=== PATIENT | female | born 1935 | race Caucasian/White ===

== ENCOUNTER → 2017-02-22 | Outpatient (CLI) | payer MEDICARE, OTHER ==
[~2017-02-22] MED LIST: ACIDOPHILUS PROB1 MG PO; CALC-534 PO; CARB1DRO5 EACHEYE; CHOL10003 PO; CYCL1DRO EACHEYE; LEVO100T PO; LEVO88TA2 PO; LOSA25TA5 PO; MELA1TAB6 PO; METO-93 PO; OMEP40CA6 PO; WARF3TAB7 PO; [UNRECOGNIZED DRUG - MIXTURE] PO; cytomel PO; magnesium PO; potassium PO; vitamin b12 INJ
[2017-02-22 12:27] LABS: HEMATOCRIT 42.8 % (34.6-47.8); WHITE BLOOD COUNT 4.5 x10^3/uL (3.4-10)
[2017-02-22 12:36] LABS: BLOOD UREA NITROGEN 16 mg/dL (7-18)
[2017-02-22 12:40] LABS: ASPARTATE AMINO TRANSFERASE 25 U/L (15-37)
== END | disposition home or self-care (01) ==
LOC: STAR 11:17
PROVIDERS: ATTEND Orthopaedic Surgery
DX: Z01.818 Encounter for other preprocedural examination (principal); I48.91 Unspecified atrial fibrillation; G56.01 Carpal tunnel syndrome, right upper limb; M81.0 Age-related osteoporosis without current pathological fracture
CPT/HCPCS: 36415; 80053; 85025; 85610; 85730; 93005

== ENCOUNTER 2017-03-01 05:39 | Day surgery (SDC) | payer MEDICARE, OTHER ==
[~2017-03-01] VITALS: Ht 174 cm; Wt 73.0 kg
[2017-03-01] MEDS ORDERED: BUPIVACAINE/PF 0.5% ONE (06:09)
[2017-03-01] MEDS ORDERED: BACITRACIN 50,000 UNIT ONE (06:09)
[2017-03-01] MEDS ORDERED: LIDOCAINE/PF 1%, 30ML ONE (06:09)
[2017-03-01] MEDS ORDERED: LACTATED RINGERS 1,000 ML IV SCH (06:13)
[2017-03-01 06:44] VITALS: BP 140/66
[2017-03-01] MEDS ORDERED: hydrALAzine 20 MG/ML, 1ML IV PRN (07:00)
[2017-03-01] MEDS ORDERED: MEPERIDINE/PF 25MG/0.5ML IVPush PRN (07:00)
[2017-03-01] MEDS ORDERED: ACETAMINOPHEN 325 MG TABLET PO PRN (07:00)
[2017-03-01] MEDS ORDERED: FENTANYL PF 100 MCG/2ML IV PRN (07:00)
[2017-03-01] MEDS ORDERED: HYDROcodone/APAP 7.5-325MG/15ML UDC PO PRN (07:00)
[2017-03-01] MEDS ORDERED: LABETALOL 5MG/ML, 20ML IV PRN (07:00)
[2017-03-01] MEDS ORDERED: PROMETHAZINE 25 MG/ML, 1ML IV PRN (07:00)
[2017-03-01] MEDS ORDERED: ONDANSETRON 2MG/ML, 2ML IVPush PRN (07:00)
[2017-03-01] MEDS ORDERED: HYDROmorphone 1 MG/ML, 1ML IV PRN (07:00)
[2017-03-01] MEDS ORDERED: ONDANSETRON 2MG/ML, 2ML ONE (07:04)
[2017-03-01] MEDS ORDERED: PROPOFOL 10 MG/ML, 20ML ONE (07:04)
[2017-03-01] MEDS ORDERED: FENTANYL PF 100 MCG/2ML ONE (07:04)
[2017-03-01] MEDS ORDERED: MIDAZOLAM 1 MG/ML, 2ML ONE (07:04)
[2017-03-01] MEDS ORDERED: DEXAMETHASONE 4 MG/ML, 1ML ONE (07:04)
== END 2017-03-01 09:15 ==
LOC: OUT 05:39
PROVIDERS: ATTEND Orthopaedic Surgery
DX: G56.01 Carpal tunnel syndrome, right upper limb (principal); I10 Essential (primary) hypertension; K21.9 Gastro-esophageal reflux disease without esophagitis; E03.9 Hypothyroidism, unspecified; Z87.39 Personal history of other diseases of the musculoskeletal system and connective tissue; Z88.6 Allergy status to analgesic agent; Z88.1 Allergy status to other antibiotic agents; Z88.8 Allergy status to other drugs, medicaments and biological substances; Z91.09 Other allergy status, other than to drugs and biological substances
CPT/HCPCS: 29848; 36415; 85610; J1100; J2250; J2405; J2704; J3010; J3490; J7120

== ENCOUNTER → 2018-08-23 | Outpatient (CLI) | payer MEDICARE, OTHER ==
[~2018-08-23] MED LIST changes: +LOSA25TA25 PO; -LOSA25TA5 PO; +OMNIPAQUE 350 MG/ML, 100ML BOTTLE ONE; +WARF3TAB52 PO; -WARF3TAB7 PO
== END | disposition home or self-care (01) ==
LOC: CFH 12:34
PROVIDERS: ATTEND Family Medicine
DX: R51 Headache (principal)
CPT/HCPCS: 70496; Q9967

== ENCOUNTER → 2018-10-12 | Outpatient (CLI) | payer MEDICARE, OTHER ==
[~2018-10-12] MED LIST changes: +LIDOCAINE-MPF 1%, 5ML ONE; -OMNIPAQUE 350 MG/ML, 100ML BOTTLE ONE; +ROPivacaine/PF 0.2%, 10 ML ONE; +TRIAMCINOLONE ACETONIDE 40 MG/ML, 1ML ONE
== END | disposition home or self-care (01) ==
LOC: RAD 13:01
PROVIDERS: ATTEND Nurse Practitioner
DX: M19.071 Primary osteoarthritis, right ankle and foot (principal)
CPT/HCPCS: 20610; 77002; J2795; J3301

== ENCOUNTER 2020-09-09 09:39 | Outpatient (CLI) | payer MEDICARE, OTHER ==
[~2020-09-09 09:39] MED LIST changes: -LIDOCAINE-MPF 1%, 5ML ONE; +MELA1TAB46 PO; -MELA1TAB6 PO; +OMEP40CA42 PO; -OMEP40CA6 PO; -ROPivacaine/PF 0.2%, 10 ML ONE; -TRIAMCINOLONE ACETONIDE 40 MG/ML, 1ML ONE
[2020-09-09] MEDS ORDERED: OMNIPAQUE 350 MG/ML, 100ML BOTTLE ONE (16:24)
== END 2020-09-09 23:59 | disposition home or self-care (01) ==
LOC: CFH 09:39
PROVIDERS: ATTEND Physician Assistant
DX: G31.89 Other specified degenerative diseases of nervous system (principal); G43.109 Migraine with aura, not intractable, without status migrainosus; R27.0 Ataxia, unspecified; R41.3 Other amnesia; M85.80 Other specified disorders of bone density and structure, unspecified site; Z78.0 Asymptomatic menopausal state
CPT/HCPCS: 70470; 77080; Q9967